=== PATIENT | female | born 1980 | race Caucasian/White ===

== ENCOUNTER 2017-02-25 06:07 | Emergency (ER) | payer OTHER ==
[~2017-02-25] VITALS: Ht 167.6 cm; Wt 59.0 kg
[2017-02-25] MEDS ORDERED: predniSONE 20 MG TABLET ONE (06:41)
[2017-02-25] MEDS ORDERED: AMOX/CLAVULANATE 875 MG TABLET ONE (06:41)
--- NOTE | 2017-02-25 06:53 | NUR ---
PREFORMS LAMINATOR - MD ASSESSING PT. ORDERS REC'D. PT.WAS ADM. PREDISONE 60MG PO & AMOX /CLAV. ONE TAB/PO. ADM. W/O INCIDENCE. PT. VOIDED FOR U/A. A&O X 3, ALL PULSES PALPABLE X 4 EXT. RED RASH TO BODY,NECK,UPPER TORSO. AMBULATORY. CONT. POC.
[2017-02-25] MEDS ORDERED: AMOX/CLAVULANATE 875 MG TABLET PO ONE (07:00)
[2017-02-25] MEDS ORDERED: predniSONE 20 MG TABLET PO ONE (07:00)
[2017-02-25 07:05] LABS: BASOPHILS % (AUTO) 0.5 % (0.0-2.0); EOSINOPHILS # (AUTO) 0.5 /CMM (0.0-0.7); EOSINOPHILS % (AUTO) 5.9 % (0.0-6.0); HEMATOCRIT 39 % (33-45); LYMPHOCYTES # (AUTO) 0.8 /CMM (0.8-4.8); LYMPHOCYTES % (AUTO) 10.7 % (20.0-44.0); MEAN CORPUSCULAR HEMOGLOBIN 29 PG (26.0-33.0); MEAN CORPUSCULAR HGB CONC 33 g/dl (31.0-36.0); MEAN CORPUSCULAR VOLUME 88 fL (82-100); MONOCYTES # (AUTO) 0.4 /CMM (0.1-1.30); MONOCYTES % (AUTO) 5.1 % (2.0-12.0); NEUTROPHILS # (AUTO) 6.2 /CMM (1.8-8.9); NEUTROPHILS % (AUTO) 77.8 % (43.0-81.0); PLATELET COUNT (AUTO) 271 /CMM (150-450); RDW COEFFICIENT OF VARIATION 12.9 (11.5-15.0); RED BLOOD CELL COUNT(AUTO) 4.47 MIL/uL (4.0-5.2); WHITE BLOOD COUNT (AUTO) 7.9 K/uL (4.3-11.0)
[2017-02-25 07:16] LABS: CALCIUM, SERUM 7.9 mg/dL (8.5-10.1); CREATININE 0.7 mg/dL (0.6-1.3); POTASSIUM 3.5 mmol/L (3.5-5.1)
[2017-02-25 07:47] LABS: APPEARANCE,URINE CLEAR (CLEAR); BILIRUBIN,URINE NEGATIVE (NEGATIVE); BLOOD, URINE 1+ Ery/uL (NEGATIVE); COLOR,URINE YELLOW (YELLOW); KETONES,URINE NEGATIVE (NEGATIVE); LEUKOCYTE ESTERASE ,URINE NEGATIVE (NEGATIVE); NITRITE, URINE NEGATIVE (NEGATIVE); PH,URINE 6.5 (5.0-8.0); PROTEIN,URINE NEGATIVE (NEGATIVE); UGLUCOSE NEGATIVE (NEGATIVE); UROBILINOGEN,URINE 0.2 EU/dL (0.2)
[2017-02-25 07:49] LABS: PREGNANCY TEST URINE QUAL NEGATIVE (NEGATIVE)
[2017-02-25 07:59] LABS: ADD URINE CULTURE NO; BACTERIA,URINE Rare /HPF (None Seen); SQUAMOUS EPITHELIAL CELL,UR Few /HPF (None Seen); WBC,URINE 0-2 /HPF (0-3)
[2017-02-25 08:34] VITALS: BP 142/93
--- NOTE | 2017-02-25 08:35 | NUR ---
Patient discharged to home in stable condition. Written and verbal after care instructions given. Patient verbalizes understanding of instruction.
== END 2017-02-25 08:39 | disposition home or self-care (01) ==
LOC: ER 06:07
DX: J06.9 Acute upper respiratory infection, unspecified (principal); J03.80 Acute tonsillitis due to other specified organisms; B96.89 Other specified bacterial agents as the cause of diseases classified elsewhere; C55 Malignant neoplasm of uterus, part unspecified; Z90.710 Acquired absence of both cervix and uterus; Z88.1 Allergy status to other antibiotic agents; M19.90 Unspecified osteoarthritis, unspecified site
CPT/HCPCS: 36415; 80048; 81001; 84703; 85025; 86308; 99284; A4606; J7512; Z7610; 81000-TC

== ENCOUNTER 2017-05-11 10:14 | Emergency (ER) | payer MEDICAID, OTHER ==
[~2017-05-11] VITALS: Ht 167.6 cm; Wt 61.2 kg
--- NOTE | 2017-05-11 10:15 | NUR ---
PRESENTS SELF TO ED DUE TO EPIGASTRIC PAIN, 9/10, ACHING, 9/10 X 2 WEEKS. PATIENT ALSO REPORTED NAUSEA AND VOMITTING X 2 WEEKS. NO SOB. - DARRHEA. SKIN IS WARM TO TOUCH AND NON DIAPHORETIC. PATIENT IS AFEBRILE. ALSO COMPLAINS OF BACK PAIN,. VSS. PENDING MD STEPHEN
--- NOTE | 2017-05-11 11:14 | NUR ---
DR. BOYER AT BEDSIDE
[2017-05-11] MEDS ORDERED: MAG HYDROX/AL HYDROX/SIMETH 30 ML UDC ONE (11:20)
[2017-05-11] MEDS ORDERED: MORPHINE SULFATE INJ 4 MG/ML DISP.SYRIN ONE ×2 (11:20→12:46)
[2017-05-11] MEDS ORDERED: FAMOTIDINE/PF INJ 20 MG/2 ML VIAL IV ONE ×2 (11:21→11:30)
[2017-05-11] MEDS ORDERED: IV NS 0.9% 1,000 ML ONE (11:21)
[2017-05-11] MEDS ORDERED: IV SET PRIMARY PUMP SET 1 EA INFUS.SET MC ONE (11:21)
[2017-05-11] MEDS ORDERED: ONDANSETRON HCL/PF 4 MG/2 ML VIAL ONE (11:21)
--- NOTE | 2017-05-11 11:28 | NUR ---
IV ACCESSED TO LAC 20. BLOOD SAMPLE SENT TO LAB
[2017-05-11] MEDS ORDERED: MORPHINE SULFATE INJ 2 MG/ML DISP.SYRIN IV ONE ×2 (11:30→13:00)
[2017-05-11] MEDS ORDERED: IV NS 0.9% 1,000 ML BAG IV ONE (11:30)
[2017-05-11] MEDS ORDERED: ONDANSETRON HCL/PF 4 MG/2 ML VIAL IVP ONE (11:30)
[2017-05-11] MEDS ORDERED: MAG HYDROX/AL HYDROX/SIMETH 30 ML UDC PO ONE (11:30)
--- NOTE | 2017-05-11 11:31 | NUR ---
MEDICATED PT ORDERED
[2017-05-11 11:35] LABS: BASOPHILS # (AUTO) 0.1 /CMM (0.0-0.2); BASOPHILS % (AUTO) 1.7 % (0.0-2.0); EOSINOPHILS # (AUTO) 0.1 /CMM (0.0-0.7); EOSINOPHILS % (AUTO) 1.4 % (0.0-6.0); HEMATOCRIT 40 % (33-45); HEMOGLOBIN 13.4 g/dL (11.5-14.8); LYMPHOCYTES # (AUTO) 2.3 /CMM (0.8-4.8); LYMPHOCYTES % (AUTO) 28.3 % (20.0-44.0); MEAN CORPUSCULAR HEMOGLOBIN 30 PG (26.0-33.0); MEAN CORPUSCULAR HGB CONC 34 g/dl (31.0-36.0); MEAN CORPUSCULAR VOLUME 89 fL (82-100); MONOCYTES # (AUTO) 0.4 /CMM (0.1-1.30); MONOCYTES % (AUTO) 5.4 % (2.0-12.0); NEUTROPHILS # (AUTO) 5.1 /CMM (1.8-8.9); NEUTROPHILS % (AUTO) 63.2 % (43.0-81.0); PLATELET COUNT (AUTO) 265 /CMM (150-450); RDW COEFFICIENT OF VARIATION 12.9 (11.5-15.0)
[2017-05-11 11:44] LABS: CALCIUM, SERUM 8.6 mg/dL (8.5-10.1); CREATININE 0.6 mg/dL (0.6-1.3); POTASSIUM 3.9 mmol/L (3.5-5.1)
[2017-05-11 11:45] LABS: APPEARANCE,URINE Clear (CLEAR); BILIRUBIN,URINE Negative (NEGATIVE); BLOOD, URINE Trace-lysed Ery/uL (NEGATIVE); COLOR,URINE Yellow (YELLOW); KETONES,URINE Negative (NEGATIVE); LEUKOCYTE ESTERASE ,URINE Negative (NEGATIVE); NITRITE, URINE Negative (NEGATIVE); PH,URINE 7.5 (5.0-8.0); PROTEIN,URINE Negative (NEGATIVE); UGLUCOSE Negative (NEGATIVE); UROBILINOGEN,URINE 0.2 EU/dL (0.2)
[2017-05-11 11:49] LABS: BILIRUBIN,DIRECT 0.1 mg/dL (0.0-0.2); BILIRUBIN,TOTAL 0.3 mg/dL (0.2-1.0); TOTAL PROTEIN, SERUM 7.1 g/dL (6.4-8.2)
[2017-05-11 12:04] LABS: BACTERIA,URINE Rare /HPF (None Seen); RBC,URINE 0-2 /HPF (0-2); SQUAMOUS EPITHELIAL CELL,UR Few /HPF (None Seen); WBC,URINE 0-2 /HPF (0-3)
[2017-05-11] MEDS ORDERED: METOCLOPRAMIDE HCL 10 MG/2 ML VIAL ONE (12:10)
--- NOTE | 2017-05-11 12:20 | NUR ---
MEHRAN MATUTE AT BEDSIDE
[2017-05-11] MEDS ORDERED: METOCLOPRAMIDE HCL 10 MG/2 ML VIAL IV ONE (12:30)
[2017-05-11 12:55] VITALS: BP 112/78
--- NOTE | 2017-05-11 12:55 | NUR ---
Patient discharged to home in stable condition. Written and verbal after care instructions given. Patient verbalizes understanding of instruction.
== END 2017-05-11 12:56 | disposition home or self-care (01) ==
LOC: ER 10:22
DX: R10.13 Epigastric pain (principal); R11.2 Nausea with vomiting, unspecified; Z85.42 Personal history of malignant neoplasm of other parts of uterus; Z90.710 Acquired absence of both cervix and uterus; F17.200 Nicotine dependence, unspecified, uncomplicated
CPT/HCPCS: 36415; 71010-TC; 76705-TC; 80048-TC; 80076-TC; 81000-TC; 83690-TC; 85025-TC; A4606; J2270; J2405; J2765; J3490; J7030; Z7610